=== PATIENT | male | born 1945 | race Caucasian/White ===

== ENCOUNTER → 2018-04-17 13:33 | Outpatient (CLI) | payer MEDICARE, SELFPAY ==
--- NOTE | 2018-04-17 13:36 | RAD_ITS ---
STUDY: X-RAY - RIGHT KNEE REASON FOR EXAM: Pain, no specific injury. TECHNIQUE: 4 view(s) of the knee. COMPARISON: Radiographs 08/19/2013. FINDINGS: Normal visualized distal femur. Normal visualized proximal tibia and fibula. Normal proximal tibiofibular articulation. Normal medial femorotibial compartment. Normal lateral femorotibial compartment. Normal patellofemoral articulation. The soft tissue structures are unremarkable. RAD/Knee 4 or More Views IMPRESSION: Unremarkable x-ray examination of the right knee without interval change. Electronically Signed: Neal Albright MD at 13:07 EDT Tel , Service support ,
--- NOTE | 2018-04-17 14:06 | RAD_ITS ---
STUDY: X-RAY - RIGHT TIBIA AND FIBULA REASON FOR EXAM: Knee pain, history of benign tumor in the proximal tibial/fibular area. TECHNIQUE: 2 view(s) of the tibia and fibula were obtained. COMPARISON: None. FINDINGS: Normal visualized tibia. Normal visualized fibula. There is soft tissue swelling at the lateral aspect of the proximal fibula. RAD/Tibia & Fibula 2 Views IMPRESSION: Lateral soft tissue swelling. Otherwise, unremarkable x-ray examination of the right tibia and fibula. Electronically Signed: Neal Albright MD at 13:08 EDT Tel , Service support ,
== END ==
PROVIDERS: Family Provider Family Medicine; PCP Family Medicine; Visit Provider Orthopaedic Surgery
DX: M25.561 Pain in right knee (principal)
CPT/HCPCS: 73564; 73590

== ENCOUNTER → 2018-04-25 15:25 | Outpatient (CLI) | payer MEDICARE, SELFPAY ==
[2018-04-25 16:48] LABS: Amphetamine Urine VISTA NEGATIVE (<1000 ng/mL); Barbiturate Urine VISTA NEGATIVE (< 200 ng/mL); Benzodiazepine Urine VISTA NEGATIVE (< 200 ng/mL); Cocaine Urine VISTA NEGATIVE (< 300 ng/mL); Ecstacy Urine VISTA NEGATIVE (< 500 ng/mL); Methadone Urine VISTA NEGATIVE (< 300 ng/mL); PCP Urine VISTA NEGATIVE (< 25 ng/mL); THC Urine VISTA NEGATIVE (< 50 ng/mL); Vista UDS pH Range 6
== END ==
PROVIDERS: Family Provider Family Medicine; PCP Family Medicine; Visit Provider Anesthesiology Pain Medicine
DX: F11.20 Opioid dependence, uncomplicated (principal)
CPT/HCPCS: 80307

== ENCOUNTER → 2018-11-19 07:44 | Outpatient (CLI) | payer MEDICARE, SELFPAY ==
[2018-09-13 13:06] VITALS: BMI 31.1
--- NOTE | 2018-11-19 07:50 | NM_ITS ---
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 OCTREOTIDE-SOMATOSTATIN RECEPTOR PLANAR AND SPECT-CT SCINTIGRAPHY COMPARISON: None available. FINDINGS: Following the intravenous administration of 6.1 mCi of In 111 Octreotide, spot planar projections were obtained at 4 hours, whole body projections obtained at 24 and 48 hours and SPECT-CT acquisitions of the chest, abdomen and pelvis obtained at 24 hours post radiopharmaceutical administration reveal: 1. Planar projections demonstrate a focus of increased radiopharmaceutical concentration noted in the region of the subcarinal anterior mediastinum and right lower posterior medial lung field-presumed right lower lobe defined on the 4, 24 and 48 hour projections and confirmed on SPECT-CT reconstructions acquired at 24 hours postinjection. 2. Physiologic distribution of the radiotracer is defined in the hepatic and splenic parenchyma, right and left kidneys, urinary bladder, visualized intestinal tract. Provided SPECT-CT reconstructions are incomplete. IMPRESSION: 1. ABNORMAL In-111 OCTREOTIDE SOMATOSTATIN RECEPTOR SCINTIGRAPHY 2. 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 OCTREOTIDE-SOMATOSTATIN RECEPTOR PLANAR AND SPECT-CT SCINTIGRAPHY COMPARISON: None available. FINDINGS: Following the intravenous administration of 6.1 mCi of In 111 Octreotide, spot planar projections were obtained at 4 hours, whole body projections obtained at 24 and 48 hours and SPECT-CT acquisitions of the chest, abdomen and pelvis obtained at 24 hours post radiopharmaceutical administration reveal: 1. Planar projections demonstrate a focus of increased radiopharmaceutical concentration noted in the region of the subcarinal anterior mediastinum and right lower posterior medial lung field-presumed right lower lobe defined on the 4, 24 and 48 hour projections and confirmed on SPECT-CT reconstructions acquired at 24 hours postinjection. 2. Physiologic distribution of the radiotracer is defined in the hepatic and splenic parenchyma, right and left kidneys, urinary bladder, visualized intestinal tract. Provided SPECT-CT reconstructions are incomplete. NM/Tumor Localization SPECT
== END ==
PROVIDERS: Family Provider Family Medicine; PCP Family Medicine; Referring Provider Internal Medicine Hematology & Oncology; Visit Provider Internal Medicine Hematology & Oncology
DX: D3A.029 Benign carcinoid tumor of the large intestine, unspecified portion (principal)
CPT/HCPCS: 78800; 78802; 78803; A9572

== ENCOUNTER → 2018-11-20 09:53 | Outpatient (CLI) | payer MEDICARE, SELFPAY ==
[2018-09-13 13:06] VITALS: BMI 31.1
== END ==
PROVIDERS: Family Provider Family Medicine; PCP Family Medicine; Referring Provider Surgery; Visit Provider Surgery
DX: Z53.9 Procedure and treatment not carried out, unspecified reason (principal)

== ENCOUNTER → 2018-11-23 12:16 | Outpatient (CLI) | payer MEDICARE, SELFPAY ==
[2018-09-13 13:06] VITALS: BMI 31.1
--- NOTE | 2018-11-23 12:20 | RAD_ITS ---
STUDY: X-RAY - LUMBAR SPINE REASON FOR EXAM: Male, 73 years old. Low back pain TECHNIQUE: 5 view(s) of the lumbar spine were obtained. COMPARISON: None FINDINGS: Normal lumbar lordosis. There is no substantial scoliosis. There is a normal alignment of the vertebrae. There is multilevel endplate spondylosis of the lumbar vertebrae. There is mild narrowing of the L2-3 disc space. There is no demonstrated fracture. There is no demonstrated spondylolysis of the pars interarticulares. There are calcified plaques of the abdominal aorta. RAD/L/S Spine Min 4 Views IMPRESSION: Degenerative changes of the spine, as detailed above. Calcified plaques of the abdominal aorta. Electronically Signed: Carlitos Gallardo MD at 16:54 EDT , Service support ,
== END ==
PROVIDERS: Family Provider Family Medicine; PCP Family Medicine; Referring Provider Anesthesiology Pain Medicine; Visit Provider Anesthesiology Pain Medicine
DX: M47.816 Spondylosis without myelopathy or radiculopathy, lumbar region (principal); M54.5 Low back pain
CPT/HCPCS: 72110

== ENCOUNTER 2019-05-19 12:06 | Emergency (ER) | payer MEDICARE, SELFPAY ==
[2018-09-13 13:06] VITALS: BMI 31.1
[2019-05-19 12:07] VITALS: BP 165/81; PULSE 73; RESP 18; TEMP 36.9; O2SAT 98; BMI 32.4
--- NOTE | 2019-05-19 12:21 | CT_ITS ---
STUDY: CT BRAIN WITHOUT CONTRAST REASON FOR EXAM: Male, 73 years old. Neuro deficit, stroke RADIATION DOSAGE (If Supplied By Facility): CTDIvol = ( 44.99 ) mGy, DLP = ( 812.98 ) mGycm TECHNIQUE: Transaxial CT imaging of the brain was performed without administration of intravenous contrast material. Individualized dose optimization techniques were used for this CT. COMPARISON: No relevant priors. FINDINGS: Normal soft tissue structures. Normal calvarium. There is mild cerebral atrophy with widening of the extra-axial spaces and ventricular dilatation. There are areas of decreased attenuation within the white matter tracts of the supratentorial brain, consistent with microvascular disease changes. Normal basal ganglia and thalami. Normal brainstem. Normal cerebellum. There is no intracranial hemorrhage. There are no findings of an acute ischemic infarction. Normal visualized paranasal sinuses. CT/Brain/Head without Contrast IMPRESSION: 1. No acute intracranial hemorrhage or mass effect. 2. Central parenchymal volume loss. White matter changes that are nonspecific but most commonly associated with chronic small vessel ischemic disease. Electronically Signed: Henok Rivera MD (Brooks) at 13:23 EDT , Service support ,
--- NOTE | 2019-05-19 12:21 | CT_ITS ---
STUDY: CT ABDOMEN AND PELVIS WITHOUT CONTRAST REASON FOR EXAM: Male, 73 years old. Abdominal pain with diarrhea RADIATION DOSAGE (If Supplied By Facility): CTDIvol = ( 23.11 ) mGy, DLP = ( 1339.36 ) mGycm TECHNIQUE: Transaxial images were obtained from the dome of the diaphragm to the symphysis pubis without oral contrast, and without intravenous contrast. Sagittal and coronal images were reconstructed. Individualized dose optimization techniques were used for this CT. COMPARISON: None. FINDINGS: The visualized lung bases are unremarkable. The visualized portions of the heart are within normal limits. There is decreased attenuation of the liver consistent with steatosis. There are surgical clips in the gallbladder fossa consistent with a prior cholecystectomy. Normal spleen. There is diffuse atrophy of the pancreas. Normal bilateral adrenal glands. Normal right kidney. Normal left kidney. Normal visualized stomach. No large or small bowel dilation. No bowel or colon wall thickening. The colon is limited in detail given lack of distention. There is a surgical anastomosis of the right colon with right hemicolectomy. There is diffuse atherosclerotic calcification of the abdominal aorta, without a demonstrated aneurysm. Normal inferior vena cava. Normal retroperitoneum. Normal urinary bladder. There is enlargement of the prostate gland. Normal abdominal wall. There are diffuse degenerative changes of the visualized lumbar spine. CT/Abdomen/Pelvis without Cont IMPRESSION: 1. No bowel obstruction or large/small bowel wall thickening. Nondistended colon limits evaluation. Right hemicolectomy. 2. Hepatic steatosis. 3. Atherosclerosis. Electronically Signed: Henok Rivera MD (Brooks) at 13:27 EDT , Service support ,
--- NOTE | 2019-05-19 12:21 | RAD_ITS ---
STUDY: X-RAY CHEST REASON FOR EXAM: Male, 73 years old. Possible stroke TECHNIQUE: AP COMPARISON: 03/15/2017 FINDINGS: EKG leads project over the chest. The lungs are clear but under expanded. There is no demonstrated pleural abnormality. Normal size heart. Normal mediastinum and hugh. Normal visualized pulmonary arteries. Normal visualized aortic arch and descending thoracic aorta. No acute bony process. There is no demonstrated abnormality of the visualized soft tissue structures of the upper abdomen. RAD/Chest 1 View IMPRESSION: No airspace consolidation or pleural effusion. Hypoinflation. Electronically Signed: Henok Rivera MD (Brooks) at 13:25 EDT , Service support ,
--- NOTE | 2019-05-19 12:21 | EKG12_ITS ---
Test Reason : NEURO SYM Blood Pressure : / mmHG Vent. Rate : 074 BPM Atrial Rate : 074 BPM P-R Int : 204 ms QRS Dur : 084 ms QT Int : 416 ms P-R-T Axes : 031 -07 036 degrees QTc Int : 461 ms Sinus rhythm with occasional Premature ventricular complexes Septal infarct , age undetermined Abnormal ECG Confirmed by NEREYDA SOTO, ALISSA ([id number]), editor dictionary RODRIGUEZ GRIMALDO ([id number]) on 05/24/2019 10:17:13 AM Referred By: SANDY Confirmed By:ALISSA DAWN MD
[2019-05-19 12:39] LABS: Absolute Lymphocyte Count 4.97 X10^3/uL (0.83-4.51); Absolute Neutrophil Count 5.8 X10^3/uL (2.0-7.7); Basophil# 0.07 X10^3/uL; Basophil% 0.6 % (0-1); Eosinophil# 0.07 X10^3/uL; Eosinophils% 0.6 % (0-5); Hematocrit 48.8 % (40-54); Hemoglobin 16.7 g/dL (13.0-16.5); Lymphocyte # 4.97 X10^3/ul (4.0); Lymphocyte % 41.9 % (19-41); Mean Corp Hgb Conc 34.2 g/dL (32-36); Mean Corpuscular Hgb 31.6 pg (27.0-32.0); Mean Corpuscular Volume 92.4 fL (80-94); Mean Platelet Vol. 9.5 fl (6.2-12.0); Monocyte# 0.85 X10^3/uL; Monocyte% 7.2 % (0-10); NRBC Flagged by Analyzer 0 % (0-5); Neutrophil # 5.83 X10^3/uL (2.7-7.7); Neutrophil % 49.2 % (47-70); Platelet Count 288 K/mm3 (150-450); RBC Distribution Width CV 12.8 % (11.6-14.6); RBC Distribution Width SD 43.5 fl (35.1-43.9); Red Blood Count 5.28 M/mm3 (4.6-6.2); White Blood Count 11.9 K/mm3 (4.4-11.0)
[2019-05-19 12:40] VITALS: O2SAT 96
[2019-05-19 12:47] LABS: International Normalized Ratio 1.1; Prothrombin Time (Protime)PT. 13.8 SECONDS (11.7-14.9)
[2019-05-19 12:48] LABS: Partial Thromboplast Time 30.1 Seconds (24.1-36.2)
[2019-05-19 12:50] LABS: AST(SGOT) 91 U/L (15-37); Alanine Aminotransfer ALT/SGPT 74 U/L (16-61); Albumin, Serum 3.6 g/dL (3.2-5.0); Alkaline Phosphatase 119 U/L (45-117); Anion Gap 17 (5-15); BUN 7 mg/dL (7-18); BUN/Creat Ratio 6.8 RATIO (10-20); Calcium,Total 8.7 mg/dL (8.5-10.1); Chloride 98 mmol/L (98-107); Creatinine, Serum 1.03 mg/dL (0.70-1.30); EST Glomerular Filtration Rate 75 mL/min (>60); Est Glom Filt Rate - Afr Amer 91 mL/min (>60); Estimated Creatinine Clearance 60.87 ml/min; Globulin 4.4 g/dL (2.2-4.2); Glucose 194 mg/dL (74-106); Lipase 404 U/L (73-393); Potassium 3.3 mmol/L (3.5-5.1); Sodium Level 135 mmol/L (136-145)
[2019-05-19] MEDS: Ondansetron 4 MG/2 ML Vial IV (13:06)
[2019-05-19 13:29] LABS: Bacteria 0 SEEN /hpf (None Seen); Mucous, Urine 0 SEEN /hpf (<or=2+); Red Blood Cells-Urine 0 SEEN /hpf (0-5); Squamous Epithelial Cells - UA 0 SEEN /hpf (0-5); White Blood Cells 0 SEEN /hpf (0-5)
[2019-05-19 13:30] LABS: Color, Urine Yellow (Yellow); Glucose, Dipstick Normal (Normal); Ketone-Dipstick 5 mg/dl (Negative); Leukocyte Esterase-Dipstick Negative /ul (Negative); Nitrite-Dipstick Negative (Negative); Occult Blood-Urine Negative /ul (Negative); Protein-Dipstick Negative (Negative); Urine Bilirubin Dipstick Negative (Negative); Urine Clarity Clear (Clear); Urine Urobilinogen Normal (Normal)
--- NOTE | 2019-05-19 13:51 | ED.DCSUM_ITS ---
- ER Visit Summary Date of Service: 05/19/19 Chief Complaint: Multiple issues History of Present Illness: The patient is a 73 M who presents with his . She was worried he had a stroke. Yesterday at 5 AM, over 24 hours ago, he had left eye droopiness, right leg weakness, and slurred speech. He fell secondary to the right leg weakness. He only has a right leg as his left leg was amputated remotely. Denies any current vision changes, speech changes, focal weakness, or focal numbness. He denies any injuries from the fall. He says that he has had long-standing diarrhea secondary to hemicolectomy by Dr. Delgado remotely. He has been taking Pepto, and his stools have been black. He denies any bleeding. His was concerned for bleeding, but he continues to deny it. He is not on blood thinners. He reports occasional diffuse abdominal pain. Denies fevers or urinary symptoms. Denies respiratory symptoms. Denies recent illnesses. Physical Examination: Afebrile and vital signs unremarkable. Patient alert and oriented. He affect is slightly labile, see below. Head and neck atraumatic. Cranial nerves grossly intact. HEENT exam unremarkable. Heart regular. Lungs clear. Abdomen soft and nontender. Patient refused rectal exam. Extremities show left lower extremity amputation. Patient otherwise has good strength and sensation and his NIH stroke scale is 0. Test Results: EKG showed sinus rhythm at a rate of 74. White count 11.9, hemoglobin 16.7. Sodium 135, potassium 3.3, CO2 20, anion gap 17, glucose 194, alkaline phosphatase 119, ALT 74, AST 91. Lipase and coags unremarkable. Urinalysis and troponin unremarkable. Chest x-ray showed chronic changes. CT brain showed chronic changes. CT abdomen and pelvis showed postoperative and chronic changes. Emergency Department Course and Treatment: Patient has multiple symptoms including neurologic and GI symptoms. A broad work-up was pursued. Overall, his work-up was fairly unremarkable. Patient refused a rectal exam to check for Hemoccult positive stool. He mentioned multiple times how upset he was that we were suggesting he should have a rectal exam. He seemed to perseverate on this and at times gets slightly agitated. He was always redirectable although, and otherwise pleasant. I am not sure what is causing the patient's symptoms. It sounds like, from his , that the symptoms are all fairly acute over the last couple days. He is not doing well at home. She cannot care for him. He is not safe at home. We contacted the hospitalist for further care. Treatment Plan: As above Disposition: Dr. Parish evaluated the patient, and the patient wants to go home. He is alert and oriented and will be discharged AGAINST MEDICAL ADVICE. Impression: 1. Encephalopathy This note was generated with [employer] dictation software. It may contain incorrect words, spelling, and punctuation that were not noted in review of the chart prior to signing ED Disposition - Plan for ED Patient:
--- NOTE | 2019-05-19 14:22 | PCM.CONS.GEN ---
Problem List (1) Debility Status: Acute Reason for Consult Date of Consultation: 05/19/19 Reason for Consultation: Consult requested by Dr. pabon for debility and inpatient admission. History of Present Illness: The patient is a 73 year old M presents with chronic history of diarrhea but worse over the past several days and just increasing weakness over the past couple days. Patient has had some falls. Patient's brought him into the hospital for evaluation stating that she be unable to care for him. Patient underwent a battery of test, head CT, abdominal CT that showed no acute process. Lab work was fairly unremarkable though did show potassium 3.3. Patient has been having diarrhea and the patient and his dispute the consisting of his diarrhea. His that is watery and red, the patient refutes that saying that it is black from his Pepto-Bismol. So they spoke with emerged from and he advised to admission to be further evaluated for possible placement. Went and saw the patient and reiterated the same he was quite alarmed by that and absolutely refused to be admitted even if it were just to get IV fluids and just be evaluated by therapy. He scalp at the very nature of physical therapy saying that he does not need the exercises. 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) G54.6 Chronic back pain (Chronic) M54.9, G89.29 Polyp of cecum (Acute) 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 Hemorrhoids K64.9 Allergies clonidine Allergy (Verified 05/19/19 12:10) Other BRADYCARDIA/ 'NARCOTIC LIKE MIND terazosin HCl [From Hytrin] Allergy (Verified 05/19/19 12:10) Other INCREASED HR tetracycline Allergy (Verified 05/19/19 12:10) Unknown STATES NOT ABLE TO TAKE valsartan [From Diovan] Allergy (Verified 05/19/19 12:10) Unknown amlodipine besylate [From Norvasc] Adverse Reaction (Verified 05/19/19 12:10) Other dexamethasone [From Maxidex] Adverse Reaction (Verified 05/19/19 12:10) Other doxycycline Adverse Reaction (Verified 05/19/19 12:10) Upset Stomach enalapril maleate [From Vasotec] Adverse Reaction (Verified 05/19/19 12:10) Other enalaprilat dihydrate [From Vasotec] Adverse Reaction (Verified 05/19/19 12:10) Other ezetimibe [From Zetia] Adverse Reaction (Verified 05/19/19 12:10) Other hydrochlorothiazide Adverse Reaction (Verified 05/19/19 12:10) Other WEAKNESS lansoprazole [From Prevacid] Adverse Reaction (Verified 05/19/19 12:10) Other PAIN IN STOMCAH losartan potassium [From Cozaar] Adverse Reaction (Verified 05/19/19 12:10) Other metformin Adverse Reaction (Verified 05/19/19 12:10) Other PAIN IN ABDOMEN pioglitazone HCl [From Actos] Adverse Reaction (Verified 05/19/19 12:10) Other MESSED WITH MY HEART propranolol HCl [From Inderal LA] Adverse Reaction (Verified 05/19/19 12:10) Other rosuvastatin calcium [From Crestor] Adverse Reaction (Verified 05/19/19 12:10) Other sucralfate [From Carafate] Adverse Reaction (Verified 05/19/19 12:10) Other HEARTBURN Home Medications: Ambulatory Orders Medication Instructions Recorded Acetaminophen [Tylenol] 1,000 mg PO PRN PRN 11/04/15 Fish Oil/Dha/Epa [Fish Oil 1,200 4 cap PO DAILY 11/04/15 mg Fish Oil] Fluticasone 0.05% [Flonase Nasal 2 spray NASAL DAILY PRN 11/04/15 [place]] Tamsulosin HCl [Flomax] 0.4 mg PO DAILY 11/04/15 Clorazepate [Tranxene] 7.5 mg PO DAILY PRN 03/07/17 Insulin Glargine,Hum.rec.anlog 60 unit SQ DAILY 03/07/17 [Lantus] Loperamide [Imodium] 2 mg PO PRN PRN 03/07/17 Olmesartan Medoxomil [Benicar] 40 mg PO DAILY 03/07/17 Insulin Aspart [Novolog Flexpen 5 units SUBCUT TIDCM PRN 04/28/17 ([facility])] Surgical History: Surgical History (Last Reviewed 05/19/19 @ 14:24 by Akbar Parish DO) 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 Leg amputation in 1967. Smoking Status: Former smoker Alcohol: Heavy - Drinks a quarter of a handle size bottle of low proof vodka - *Family History Maternal History Items: Diabetes Paternal History Items: Hypertension Review of Systems Constitutional: Reports: Weakness. Denies: Anorexia, Chills, Fever, Night Sweats Eyes: Denies: Blurred vision, Double vision HEENT: Reports: Difficulty Hearing. Denies: Dysphasia, Ear Pain Cardiovascular: Denies: Chest Pain, Palpitations Respiratory: Reports: Cough - chronic for past several months.. Denies: Shortness of Breath Gastrointestinal: Denies: Abdominal Pain, Nausea, Vomiting Genitourinary: Denies: Dysuria Musculoskeletal: Reports: - - phantom pain. Denies: Joint Pain, Joint Tenderness Neurological: Reports: Balance problems. Denies: Blurred vision, Double vision Psychiatric: Denies: Anxiety, Depression Hematologic/ Lymphatic: Denies: Easy Bruising, Easy Bleeding, Hx of blood clot Comment: All review systems are negative except for as mentioned above. Patient Problems: Active and Suspected Problems (Last Reviewed 09/16/18 @ 17:52 by David Delgado MD) Debility (Acute) - Physical Exam General: Alert, Oriented x3, Cooperative, - - Hard of hearing. Vulgar at sometimes. HEENT: Atraumatic, PERRLA, EOMI, Normocephalic Oral: Moist Mucosa, No Gingival or Mucosal Lesions/ Ulcerations Neck: No Nodes, Thyroid Normal Size and Texture Lungs: Clear to auscultation, Normal air movement, No rhonchi, No wheeze, No rales, Diminished Cardiovascular: Regular rate, Regular Rhythm, Normal S1, Normal S2, No murmurs Abdomen: Bowel Sounds Present, Soft, Non-Distended, Tender Extremities: No edema - And right lower extremity Skin: No rashes, No breakdown Musculoskeletal: No Tenderness to Palpation of Joints or Extremities, No Muscle Wasting Psych/Mental Status: Appropriate, Agitated Vital Signs Temp Pulse Resp BP Pulse Ox 36.9 C 73 18 165/81 H 96 05/19/19 12:07 05/19/19 12:07 05/19/19 12:07 05/19/19 12:07 05/19/19 12:40 Oxygen Delivery Method Room Air Weight: 96.8 kg Body Mass Index (BMI) 32.4 Finger Stick Blood Glucose 251 Intake and Output for Last 24 Hours 05/17/19 05/18/19 05/19/19 23:59 23:59 23:59 Intake Total 500 / 500 Balance 500 / 500 Laboratory Tests Past 24 Hrs 05/19/19 05/19/19 05/19/19 12:15 12:15 12:15 WBC 11.9 H RBC 5.28 Hgb 16.7 H Hct 48.8 MCV 92.4 MCH 31.6 MCHC 34.2 RDW Std Deviation 43.5 RDW Coeff of Jenise 12.8 Plt Count 288 MPV 9.5 Immature Gran % (Auto) 0.500 Neut % (Auto) 49.2 Lymph % (Auto) 41.9 H [place] % (Auto) 7.2 Eos % (Auto) 0.6 Baso % (Auto) 0.6 Absolute Neuts (auto) 5.8 Absolute Lymphs (auto) 4.97 H Nucleated RBC % 0 PT 13.8 INR 1.1 APTT 30.1 Sodium 135 L Potassium 3.3 L Chloride 98 Carbon Dioxide 20.0 L Anion Gap 17 H BUN 7 Creatinine 1.03 Estim Creat Clear Calc 60.87 Est GFR (MDRD) Af Amer 91 Est GFR (MDRD) Non-Af 75 BUN/Creatinine Ratio 6.8 L Glucose 194 H Calcium 8.7 Total Bilirubin 0.60 Direct Bilirubin 0.20 AST 91 H ALT 74 H Alkaline Phosphatase 119 H Troponin I < 0.015 Total Protein 8.0 Albumin 3.6 Globulin 4.4 H Lipase 404 H Urine Color Urine Clarity Urine pH Ur Specific [place] Urine Protein Urine Glucose (UA) Urine Ketones Urine Occult Blood Urine Nitrite Urine Bilirubin Urine Urobilinogen Ur Leukocyte Esterase Urine RBC Urine WBC Ur Squamous Epith Cells Urine Bacteria Urine Mucus 05/19/19 13:20 WBC RBC Hgb Hct MCV MCH MCHC RDW Std Deviation RDW Coeff of Jenise Plt Count MPV Immature Gran % (Auto) Neut % (Auto) Lymph % (Auto) [place] % (Auto) Eos % (Auto) Baso % (Auto) Absolute Neuts (auto) Absolute Lymphs (auto) Nucleated RBC % PT INR APTT Sodium Potassium Chloride Carbon Dioxide Anion Gap BUN Creatinine Estim Creat Clear Calc Est GFR (MDRD) Af Amer Est GFR (MDRD) Non-Af BUN/Creatinine Ratio Glucose Calcium Total Bilirubin Direct Bilirubin AST ALT Alkaline Phosphatase Troponin I Total Protein Albumin Globulin Lipase Urine Color Yellow Urine Clarity Clear Urine pH 6.0 Ur Specific [place] 1.010 Urine Protein Negative Urine Glucose (UA) Normal Urine Ketones 5 H Urine Occult Blood Negative Urine Nitrite Negative Urine Bilirubin Negative Urine Urobilinogen Normal Ur Leukocyte Esterase Negative Urine RBC 0 SEEN Urine WBC 0 SEEN Ur Squamous Epith Cells 0 SEEN Urine Bacteria 0 SEEN Urine Mucus 0 SEEN Clinical Impression(s) from Imaging Studies Abdomen/Pelvis CT 05/19/19 12:21 IMPRESSION: 1. No bowel obstruction or large/small bowel wall thickening. Nondistended colon limits evaluation. Right hemicolectomy. 2. Hepatic steatosis. 3. Atherosclerosis. Electronically Signed: Henok Rivera MD (Brooks) at 13:27 EDT , Service support , Brain CT 05/19/19 12:21 IMPRESSION: 1. No acute intracranial hemorrhage or mass effect. 2. Central parenchymal volume loss. White matter changes that are nonspecific but most commonly associated with chronic small vessel ischemic disease. Electronically Signed: Henok Rivera MD (Brooks) at 13:23 EDT , Service support , Chest X-Ray 05/19/19 12:21 IMPRESSION: No airspace consolidation or pleural effusion. Hypoinflation. Electronically Signed: Henok Rivera MD (Brooks) at 13:25 EDT , Service support , Assessment/Plan All Active Problems (Last Reviewed 09/16/18 @ 17:52 by David Delgado MD) Debility (Acute) Acute cholecystitis (Acute) Ampulla of Vater mass (Acute) Polyp of cecum (Acute) Status post right hemicolectomy (Acute) 1. Debility Patient was noted to be weak today and is only has one leg. Patient has [id number] amputation on his left lower extremity and does not use his prosthesis because it does not fit properly at this time. I suspect patient may be dehydrated and possible have associated illness and advised patient be brought in to receive additional IV fluids and reevaluate physical and occupational therapy to see if he may need to go to a long-term facility as the patient's states that she would be unable to care for him. The patient adamantly refuses to have any of that and strongly wishes to go home. Patient understands risks of going home which would be him just being very weak and potential for fall which could lead to a hip fracture or other fractures or some catastrophic such as if he were hit his head. Patient understands that but has a lot of confidence that he will be fine. This was all addressed in front of his . 2. Diarrhea has been more of a chronic process which may be related with his history of a cholecystectomy May consider Imodium. No acute process on CT the abdomen pelvis 3. Belligerent behavior Unknown with this patient's baseline but apparently different when he is currently. Otherwise states that he is just having more outbursts lately. Patient did have some vulgarities why he was here but and said some vulgarities towards me but was otherwise pleasant and we shook hands. I am unsure if there is anything acutely going on here but certainly if this condition persists then may warrant additional evaluation. Currently, he is alert and oriented x3 though he did miss the day of the month. His not a threat to himself or others other than just making bad decisions in regards to his own care. No acute process noted on the head CT Case discussed with Dr. Cline. Explained that if the patient does change his mind then the hospital service would be happy to bring the patient under observation status and be evaluated by physical therapy. Code Visit Office Visits / Consults: [id number] OP Consult L4
[2019-05-19 14:40] VITALS: BP 146/58; PULSE 76; RESP 16; O2SAT 98
== END 2019-05-19 15:16 | disposition home or self-care (01) ==
LOC: ED 13:55 → MS3 14:23
PROVIDERS: Emergency Provider Emergency Medicine; Family Provider Family Medicine; PCP Family Medicine
DX: G93.40 Encephalopathy, unspecified (principal); R53.81 Other malaise; R19.7 Diarrhea, unspecified; K81.0 Acute cholecystitis; K63.5 Polyp of colon; E11.9 Type 2 diabetes mellitus without complications; I10 Essential (primary) hypertension; H91.90 Unspecified hearing loss, unspecified ear; R53.1 Weakness; R47.81 Slurred speech; R10.84 Generalized abdominal pain; R45.1 Restlessness and agitation; Z79.4 Long term (current) use of insulin; Z79.899 Other long term (current) drug therapy; Z88.5 Allergy status to narcotic agent; Z88.1 Allergy status to other antibiotic agents; Z87.891 Personal history of nicotine dependence; Z89.512 Acquired absence of left leg below knee; Z90.49 Acquired absence of other specified parts of digestive tract
CPT/HCPCS: 70450; 71045; 74176; 80048; 80076; 81001; 83690; 84484; 85025; 85610; 85730; 93005; 96361; 96374; 99285; J7120; A4216; J2405

== ENCOUNTER 2019-05-28 11:57 | Emergency (ER) | payer MEDICARE, SELFPAY ==
[2019-05-28 11:58] VITALS: BP 156/69; PULSE 83; RESP 18; TEMP 36.7; O2SAT 96; BMI 29.7
--- NOTE | 2019-05-28 12:51 | ED.VISSUMM ---
- ER Visit Summary Date of Service: 05/28/19 Chief Complaint: Diarrhea for 1 week History of Present Illness: The patient is a 73 M 3 of diabetes, hypertension and prior carcinoma in which she had a partial colectomy also appendectomy and cholecystectomy. Patient was seen in the emergency department approximately a week ago. He left at that time AMA. He was worked up for mental status change. He states since that time he had diarrhea. Denies any recent admissions. No recent antibiotics he has had nausea but no vomiting. No melena. Denies any fever or chills. Physical Examination: Older male no acute distress vital signs are stable afebrile. He does not look septic or toxic. He does not look dehydrated. HEENT exam unremarkable. Moist his membranes. Neck nontender. No lymphadenopathy. Lungs clear to auscultation bilaterally. Heart regular rhythm no murmur abdomen is soft and nontender normal bowel sounds no peritoneal signs. Patient is moving all 4 extremities neurovascular intact. He is a left [id number] amputation from 50 years ago. Neurologically is awake and alert with no focal motor deficits. Test Results: CBC normal white count 10. Hemoglobin 16. No bands. Chemistries normal glucose 158 normal creatinine and gap. I ordered stool cultures patient has not had a bowel movement the entire time is in the ER clinically I do not think this is C. difficile these can be done as an outpatient. Emergency Department Course and Treatment: Clinically patient looks good. He is not dehydrated. Screening labs and a stool culture was ordered but he had no BMs so will be done as an outpatient. Treatment Plan: Follow-up with primary care physician. Disposition: discharge Impression: Acute diarrhea of uncertain etiology This note was generated with [employer] dictation software. It may contain incorrect words, spelling, and punctuation that were not noted in review of the chart prior to signing ED Disposition - Plan for ED Patient: Referrals: Simon Munson MD [Primary Care Provider] -
[2019-05-28 13:02] LABS: Absolute Lymphocyte Count 3.54 X10^3/uL (0.83-4.51); Absolute Neutrophil Count 5.7 X10^3/uL (2.0-7.7); Basophil# 0.06 X10^3/uL; Basophil% 0.6 % (0-1); Eosinophil# 0.09 X10^3/uL; Eosinophils% 0.9 % (0-5); Hematocrit 50.9 % (40-54); Hemoglobin 16.8 g/dL (13.0-16.5); Lymphocyte # 3.54 X10^3/ul (4.0); Lymphocyte % 33.7 % (19-41); Mean Corpuscular Hgb 31.3 pg (27.0-32.0); Mean Platelet Vol. 10.3 fl (6.2-12.0); Monocyte# 1.07 X10^3/uL; Monocyte% 10.2 % (0-10); NRBC Flagged by Analyzer 0 % (0-5); Neutrophil % 54.1 % (47-70); Platelet Count 293 K/mm3 (150-450); RBC Distribution Width CV 13.1 % (11.6-14.6); Red Blood Count 5.36 M/mm3 (4.6-6.2); White Blood Count 10.5 K/mm3 (4.4-11.0)
[2019-05-28 13:12] LABS: Anion Gap 13 (5-15); BUN 7 mg/dL (7-18); BUN/Creat Ratio 6.9 RATIO (10-20); Calcium,Total 9.1 mg/dL (8.5-10.1); Chloride 102 mmol/L (98-107); Creatinine, Serum 1.01 mg/dL (0.70-1.30); EST Glomerular Filtration Rate 77 mL/min (>60); Est Glom Filt Rate - Afr Amer 93 mL/min (>60); Estimated Creatinine Clearance 64.17 ml/min; Glucose 158 mg/dL (74-106); Potassium 3.8 mmol/L (3.5-5.1); Sodium Level 136 mmol/L (136-145)
[2019-05-28 13:57] VITALS: RESP 16
--- NOTE | 2019-05-28 14:35 | ED.RN ---
PT UNABLE TO PRODUCE STOOL SAMPLE
[2019-05-28 15:00] VITALS: RESP 16
--- NOTE | 2019-05-28 15:12 | DCINST.ED_ITS ---
ED Disposition - Plan for ED Patient: Instructions: VOMITING AND DIARRHEA, Nonspecific (Adult) Referrals: Simon Munson MD [Primary Care Provider] - As soon as possible Additional Instructions: Plenty of fluids and rest. Your physician. You may need stool cultures done if this continues. If they cannot get it figured out they may need to refer you to a web site manager.
[2019-05-28 16:02] VITALS: BP 134/65; PULSE 72; RESP 16; O2SAT 96
--- NOTE | 2019-05-28 16:04 | ED.RN ---
REVIEWED D/C INSTRUCTIONS, FOLLOW UP CARE, AND S/S THAT WOULD WARRANT A RETURN TO THE ED WITH PT. PT VERBALIZED AN UNDERSTANDING AND DENIES FURTHER QUESTIONS FOR THIS RN. PT SKIN P/W/D, RESP EVEN AND UNLABORED, PT A&O X 3, NO DISTRESS NOTED. PT ASSISTED OUT OF ED IN WHEELCHAIR.
== END 2019-05-28 16:05 | disposition home or self-care (01) ==
LOC: ED 12:30
PROVIDERS: Emergency Provider Emergency Medicine; Family Provider Family Medicine; PCP Family Medicine
DX: R19.7 Diarrhea, unspecified (principal); I10 Essential (primary) hypertension; E11.9 Type 2 diabetes mellitus without complications; Z90.49 Acquired absence of other specified parts of digestive tract; Z89.612 Acquired absence of left leg above knee; Z79.4 Long term (current) use of insulin; Z79.899 Other long term (current) drug therapy
CPT/HCPCS: 80048; 85025; 99285; A4216

== ENCOUNTER 2020-05-07 09:11 | Day surgery (SDC) | payer MEDICARE, SELFPAY ==
[2020-04-30 14:03] VITALS: BMI 29.7
[2020-05-07 09:33] VITALS: BP 151/64; PULSE 66; RESP 14; TEMP 36.6; O2SAT 93; BMI 31.4
[2020-05-07] MEDS: Lactated Ringers 1,000 ML 100 ML IV (10:14)
[2020-05-07 10:30] LABS: Bedside Glucose 202 mg/dL (70-110)
--- NOTE | 2020-05-07 10:50 | RAD_ITS ---
ERCP INDICATION: Abdominal pain. Fluoroscopy time: 87 seconds Images obtained: 7 TECHNIQUE: 87 seconds of fluoroscopy of the abdomen was utilized during ERCP and 7 images are symmetric for interpretation. Next FINDINGS: There is an oval filling defect within the common bile duct worrisome for common bile duct stone. This was treated with balloon sphincterotomy and stent placement. Next IMPRESSION: Common bile duct stone. Electronically Signed: Asher Hoskins MD at 12:05 EDT Tel , Service support , RAD/ERCP Biliary Only
--- NOTE | 2020-05-07 11:35 | OP.ERCP_ITS ---
Patient Name: Suhas Sterling Procedure Date: 05/07/2020 9:13 AM Date of : 1945 Age: 74 Procedure: ERCP Indications: Biliary dilation on Computed Tomogram Scan Providers: Panda Manzano MD Referring MD: Simon Munson Medicines: General Anesthesia Patient Profile: This is a 74 year old male. Refer to note in patient chart for documentation of history and physical. Complications: No immediate complications. Estimated blood loss: Minimal. Procedure: Pre-Anesthesia Assessment: - Prior to the procedure, a History and Physical was performed, and patient medications and allergies were reviewed. The patient's tolerance of previous anesthesia was also reviewed. The risks and benefits of the procedure and the sedation options and risks were discussed with the patient. All questions were answered, and informed consent was obtained. Prior Anticoagulants: The patient has taken no previous anticoagulant or antiplatelet agents. After reviewing the risks and benefits, the patient was deemed in satisfactory condition to undergo the procedure. After obtaining informed consent, the scope was passed under direct vision. Throughout the procedure, the patient's blood pressure, pulse, and oxygen saturations were monitored continuously. The [id number] endoscope was introduced through the mouth, and advanced to the duodenum and used to inject contrast into the bile duct. The ERCP was accomplished without difficulty. The patient tolerated the procedure well. Scope In: 10:55:37 AM Scope Out: 11:22:59 AM Total Procedure Duration Time 0 hours 27 minutes 22 seconds Findings: A 0.035 inch x 260 cm straight Dreamwire was passed into the biliary tree. The sphincterotome was passed over the guidewire and the bile duct was then deeply cannulated. Contrast was injected. The common bile duct was diffusely dilated, with a stone causing an obstruction. The lower third of the main bile duct contained one stone, which was large in diameter. Biliary sphincterotomy was made with a monofilament sphincterotome using ERBE electrocautery. There was no post-sphincterotomy bleeding. The biliary tree was swept with a 15 mm balloon starting at the bifurcation. Sludge was swept from the duct. No stones were removed. One stone remained. One 10 Fr by 5 cm plastic stent with a single external flap and a single internal flap was placed into the common bile duct. Bile flowed through the stent. The stent was in good position. Impression: - The common bile duct was dilated, with a stone causing an obstruction. - Choledocholithiasis was found. Partial removal was accomplished with biliary sphincterotomy; a stent was inserted. - A biliary sphincterotomy was performed. - The biliary tree was swept. - One plastic stent was placed into the common bile duct. Recommendation: - Discharge patient to home. - Resume previous diet. - Return to endoscopist for stent removal at ERCP in 1 month. Procedure Code(s): --- Professional --- 03304, Endoscopic retrograde cholangiopancreatography (ERCP); with placement of endoscopic stent into biliary or pancreatic duct, including pre- and post-dilation and guide wire passage, when performed, including sphincterotomy, when performed, each stent [id number], 51, Endoscopic retrograde cholangiopancreatography (ERCP); with removal of calculi/debris from biliary/pancreatic duct(s) Diagnosis Code(s): --- Professional --- K80.51, Calculus of bile duct without cholangitis or cholecystitis with obstruction K83.8, Other specified diseases of biliary tract CPT copyright 2017 [employer]. All rights reserved. The codes documented in this report are preliminary and upon reporting developer review may be revised to meet current compliance requirements. Panda Manzano MD 05/07/2020 11:35:20 AM This report has been signed electronically. Number of Addenda: 0 Note Initiated On: 05/07/2020 9:13 AM
--- NOTE | 2020-05-07 11:35 | OP.CCLET_ITS ---
05/07/2020 Simon Munson Re : ERCP procedure for Suhas Frazier Jeimy This procedure was performed on April. My impressions and recommendations are as follows: Impressions : - The common bile duct was dilated, with a stone causing an obstruction. - Choledocholithiasis was found. Partial removal was accomplished with biliary sphincterotomy; a stent was inserted. - A biliary sphincterotomy was performed. - The biliary tree was swept. - One plastic stent was placed into the common bile duct. Recommendations : - Discharge patient to home. - Resume previous diet. - Return to endoscopist for stent removal at ERCP in 1 month. My findings are described in the full procedure note, which is enclosed. If I can be of further assistance, please feel free to contact me at Doctor phone number(s): , Work: . Sincerely, Panda Manzano MD 05/07/2020 11:35:20 AM This report has been signed electronically.
[2020-05-07 11:36] VITALS: BP 127/70; BP 151/64; PULSE 69; RESP 18; TEMP 36.4; O2SAT 95
[2020-05-07 11:45] VITALS: BP 114/63; BP 151/64; PULSE 74; RESP 16; O2SAT 96
[2020-05-07 11:55] LABS: Bedside Glucose 201 mg/dL (70-110)
[2020-05-07 11:59] VITALS: BP 119/63; BP 151/64; PULSE 60; RESP 18; TEMP 36.6; O2SAT 96
[2020-05-07 12:38] VITALS: BP 151/64
--- NOTE | 2020-05-08 08:24 | HP_ITS ---
Intake Vital Signs 04/30/20 BMI 29.7 04/30/20 Height 5 ft 9 in 04/30/20 Weight: 198 lb 04/30/20 BMI 29.2 04/30/20 BP 119/69 04/30/20 Blood Pressure Location Rt brachial 04/30/20 Position Sitting 04/30/20 Respiration 18 04/30/20 Pulse 68 04/30/20 Pulse Source Monitor 04/30/20 Temp 98.1 F 04/30/20 Temp Source Temporal 04/30/20 Pulse Oximetry (%) 96 04/30/20 Oxygen Delivery Method room air Intake Visit Reasons: Jaundice/ERCP Chief Complaint: Discuss ERCP Bulk Station Agent Required: No Accompanied by: Is patient in pain?: No Allergies clonidine Allergy (Verified 04/30/20 13:56) Other terazosin HCl [From Hytrin] Allergy (Verified 04/30/20 13:56) Other tetracycline Allergy (Verified 04/30/20 13:56) Unknown valsartan [From Diovan] Allergy (Verified 04/30/20 13:56) Unknown amlodipine besylate [From Norvasc] Adverse Reaction (Verified 04/30/20 13:56) Other dexamethasone [From Maxidex] Adverse Reaction (Verified 04/30/20 13:56) Other doxycycline Adverse Reaction (Verified 04/30/20 13:56) Upset Stomach enalapril maleate [From Vasotec] Adverse Reaction (Verified 04/30/20 13:56) Other enalaprilat dihydrate [From Vasotec] Adverse Reaction (Verified 04/30/20 13:56) Other ezetimibe [From Zetia] Adverse Reaction (Verified 04/30/20 13:56) Other hydrochlorothiazide Adverse Reaction (Verified 04/30/20 13:56) Other lansoprazole [From Prevacid] Adverse Reaction (Verified 04/30/20 13:56) Other losartan potassium [From Cozaar] Adverse Reaction (Verified 04/30/20 13:56) Other metformin Adverse Reaction (Verified 04/30/20 13:56) Other pioglitazone HCl [From Actos] Adverse Reaction (Verified 04/30/20 13:56) Other propranolol HCl [From Inderal LA] Adverse Reaction (Verified 04/30/20 13:56) Other rosuvastatin calcium [From Crestor] Adverse Reaction (Verified 04/30/20 13:56) Other sucralfate [From Carafate] Adverse Reaction (Verified 04/30/20 13:56) Other Medications Acetaminophen [Tylenol] 1,000 mg PO PRN PRN 11/04/15 [History Confirmed 04/30/20] Fish Oil/Dha/Epa [Fish Oil 1,200 mg Fish Oil] 4 cap PO DAILY 11/04/15 [History Confirmed 04/30/20] Fluticasone 0.05% [Flonase Nasal [place]] 2 spray NASAL DAILY PRN 11/04/15 [History Confirmed 04/30/20] Tamsulosin HCl [Flomax] 0.4 mg PO DAILY 11/04/15 [History Confirmed 04/30/20] Loperamide [Imodium] 2 mg PO PRN PRN 03/07/17 [History Confirmed 04/30/20] cholecalciferol (vitamin D3) 25 mcg (1,000 unit) capsule 25 mcg PO DAILY 04/30/20 [History Confirmed 04/30/20] dicyclomine 20 mg tablet 20 mg PO .QID tab 04/30/20 [History Confirmed 04/30/20] insulin aspart U-100 100 unit/mL (3 mL) subcutaneous pen 80 unit SUBCUT QAM ml 04/30/20 [History Confirmed 04/30/20] irbesartan 300 mg tablet 300 mg PO DAILY 04/30/20 [History Confirmed 04/30/20] nifedipine 60 mg tablet,extended release 60 mg PO BID tab 04/30/20 [History Confirmed 04/30/20] [facility] Medical History Acute cholecystitis (Acute) Debility (Acute) Ampulla of Vater mass (Acute) Hypertension (Chronic) Type II diabetes mellitus (Chronic) 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 Panda Manzano MD) Smoking Status: Former smoker alcohol intake: never substance use type: does not use HPI HPI HPI: DAO BENNETT, is a 74 M who presents to the office today for HPI HPI Surgical H&P: Yes HPI: DAO BENNETT, is a 74 M who presents to the office today for ERCP. The patient recently had CT scan which showed dilated intrahepatic and extrahepatic bile ducts. The patient notes that recently he has been having episodes of not feeling well. He says he feels very fatigued. No nausea or vomiting or specific abdominal pain. ROS General General: Yes fatigue and colon cancer; no weight change, appetite, breast cancer or weakness HEENT HEENT: No difficulty swallowing, eye injury, eye surgery, swollen glands or hoarseness Endo Endocrine: Yes diabetes mellitus; no thyroid disease, thyroid cancer, Hair loss, heat intolerance or cold intolerance Skin Skin: No rash or changing moles Breast Breast: No left breast lump, right breast lump, nipple discharge, breast pain, abnormal mammogram, abnormal US or breast enlargement Musc Musculoskeletal: Yes back problems and arthritis; no rheumatoid arthritis, gout or joint pain Cardio Cardiovascular: Yes high blood pressure; no murmur, pacemaker, heart disease, atrial fibrillation, heart attack, heart stent, palpitations, shortness of breat with exertion or chest pain Psych Psychiatric: No depression, anxiety or hearing voices Resp Respiratory: No shortness of breath, No sleep apnea, Yes cough, No COPD, No asthma, No emphysema, No wheezing Gastro Gastrointestinal: No abdominal pain, No nausea or vomiting, Yes diarrhea, No constipation, No blood in stool, No acid reflux, Yes hemorrhoids, No ulcers, No gallbladder problem, No black,tarry stools Kel Hematologic: No blood thinners, No blood disorders, No bleeding, No anemia, No blood clots Neuro Neurologic: No system reviewed and no additional complaints, except as docu, No as per HPI, No abnormal walking, No abnormal hearing, No abnormal movements, No abnormal speech, No behavioral changes, No burning sensations, No confusion, No seizure-like activity, No unsteadiness, No dizziness, No localized weakness, No frequent falls, No headache(s), No lack of coordination, No loss of vision, No memory loss, No numbness, No other visual disturbances, No radiating pain, No restless legs, No sensory deficit, No fainting, No tingling, No tremor(s), No weakness, No other Exam Const General: cooperative Orientation: alert, oriented x3 Chest Breast Palpation: No nipple discharge Resp Effort & Inspection: normal respiratory effort Auscultation: clear to auscultation bilaterally Cardio Rate: regular rate Rhythm: regular rhythm Heart Sounds: no murmurs GI Inspection: non-distended Palpation: soft, nontender Assessment & Plan Problems 1. Elevated LFTs R79.89 2. Dilated bile duct K83.8 Plan The patient had a history of ERCP in the past and had a possible ampullary mass which was biopsied and was benign. The patient had a recent PET scan which did not show anything lighting up in that area. He did have a recent CT scan which showed dilated intrahepatic and extrahepatic bile ducts with a possible filling defect in the distal bile duct. Oncology sent the patient for evaluation for ERCP. I explained endoscopy in detail to the patient. I explained the risks including but not limited to stroke or heart attack with anesthesia, perforation of the GI tract, bleeding, infection. I also explained the possibility of stent placement or pancreatitis due to ERCP. I explained that any of these could necessitate further emergency surgery. The patient understands and all questions were answered sufficiently. The patient wishes to proceed with procedure. We discussed the current risks associated with COVID-19. While it is understood that there is a community spread of COVID-19, the risk of roya COVID-19 while at [facility] ([facility]) is very low; however, the risk cannot be completely mitigated because of the community spread of the disease. We discussed in detail the risk of exposure to and/or potential harm posed by the COVID-19 virus with having a surgery/procedure at this time versus the risk of delaying the surgery/procedure. It is not possible to know either the risk of delaying the surgery or procedure or chance of getting an infection with perfect accuracy, but a joint decision was made to proceed at this time with the scheduled surgery/procedure as indicated on the consent form. Patient was notified that we will need to comply with any screening or testing [facility] wishes to perform or that surgery may be delayed for any positive results. Panda Manzano MD Pager: [facility] [address] [place] [address], [address] [place] [address] Office: Orders Orders: ERCP Biliary Only Today K83.8, R74.8 Coding Level of Care Code Off vis,est,level 3 Diagnoses Elevated LFTs R79.89 Dilated bile duct K83.8 I have re-examined the patient. There are no clinical changes since date of exam.
== END 2020-05-07 12:40 | disposition home or self-care (01) ==
LOC: EN 09:13 → AC 09:13
PROVIDERS: Anesthesiology; PCP Family Medicine; Referring Provider Family Medicine; Visit Provider Surgery
PROC: (CPT 43260; principal; 2020-05-07 10:15)
DX: K80.50 Calculus of bile duct without cholangitis or cholecystitis without obstruction (principal); K80.51 Calculus of bile duct without cholangitis or cholecystitis with obstruction; K83.8 Other specified diseases of biliary tract; Z11.59 Encounter for screening for other viral diseases; R17 Unspecified jaundice; E11.9 Type 2 diabetes mellitus without complications; I10 Essential (primary) hypertension; R79.89 Other specified abnormal findings of blood chemistry; Z79.4 Long term (current) use of insulin; Z87.891 Personal history of nicotine dependence; Z85.038 Personal history of other malignant neoplasm of large intestine; Z90.49 Acquired absence of other specified parts of digestive tract; Z89.512 Acquired absence of left leg below knee
CPT/HCPCS: 43264; 43274; 74328; 76000; 82962; 87635; C9803; J7120; J2405; U0003

== ENCOUNTER 2020-07-29 11:28 | Day surgery (SDC) | payer MEDICARE, SELFPAY ==
[2020-06-15 09:03] VITALS: BMI 31.9
--- NOTE | 2020-07-02 07:00 | HP_ITS ---
Intake Vital Signs 06/15/20 Height 5 ft 9 in 06/15/20 Weight: 216 lb 8 oz 06/15/20 BP 180/74 H 06/15/20 Blood Pressure Location Rt brachial 06/15/20 Position Sitting 06/15/20 Respiration 20 H 06/15/20 Pulse 64 06/15/20 Pulse Source NIBP 06/15/20 Temp 97.8 F 06/15/20 Temp Source Temporal 06/15/20 Pulse Oximetry (%) 96 06/15/20 Oxygen Delivery Method room air Intake Visit Reasons: 4WK F/U ERCP Chief Complaint: Discuss ERCP Professor [employer] Required: No Is patient in pain?: No Allergies clonidine Allergy (Verified 06/15/20 08:59) Other terazosin HCl [From Hytrin] Allergy (Verified 06/15/20 08:59) Other tetracycline Allergy (Verified 06/15/20 08:59) Unknown valsartan [From Diovan] Allergy (Verified 06/15/20 08:59) Unknown amlodipine besylate [From Norvasc] Adverse Reaction (Verified 06/15/20 08:59) Other dexamethasone [From Maxidex] Adverse Reaction (Verified 06/15/20 08:59) Other doxycycline Adverse Reaction (Verified 06/15/20 08:59) Upset Stomach enalapril maleate [From Vasotec] Adverse Reaction (Verified 06/15/20 08:59) Other enalaprilat dihydrate [From Vasotec] Adverse Reaction (Verified 06/15/20 08:59) Other ezetimibe [From Zetia] Adverse Reaction (Verified 06/15/20 08:59) Other hydrochlorothiazide Adverse Reaction (Verified 06/15/20 08:59) Other lansoprazole [From Prevacid] Adverse Reaction (Verified 06/15/20 08:59) Other losartan potassium [From Cozaar] Adverse Reaction (Verified 06/15/20 08:59) Other metformin Adverse Reaction (Verified 06/15/20 08:59) Other pioglitazone HCl [From Actos] Adverse Reaction (Verified 06/15/20 08:59) Other propranolol HCl [From Inderal LA] Adverse Reaction (Verified 06/15/20 08:59) Other rosuvastatin calcium [From Crestor] Adverse Reaction (Verified 06/15/20 08:59) Other sucralfate [From Carafate] Adverse Reaction (Verified 06/15/20 08:59) Other [facility] Medical History Acute cholecystitis (Acute) Debility (Acute) Ampulla of Vater mass (Acute) Hypertension (Chronic) Type II diabetes mellitus (Chronic) 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 Panda Manzano MD) Smoking Status: Former smoker alcohol intake: never substance use type: does not use HPI HPI HPI: DAO BENNETT, is a 74 M who presents to the office today for HPI HPI Surgical H&P: Yes HPI: DAO BENNETT, is a 74 M who presents to the office today for Follow-up. The patient needs repeat ERCP for stent removal. The patient had a very large stone in his common bile duct which was unable to be removed and a stent was placed. ROS General General: Yes fatigue and colon cancer; no weight change, appetite, breast cancer or weakness HEENT HEENT: No difficulty swallowing, eye injury, eye surgery, swollen glands or hoarseness Endo Endocrine: Yes diabetes mellitus; no thyroid disease, thyroid cancer, Hair loss, heat intolerance or cold intolerance Skin Skin: No rash or changing moles Breast Breast: No left breast lump, right breast lump, nipple discharge, breast pain, abnormal mammogram, abnormal US or breast enlargement Musc Musculoskeletal: Yes back problems and arthritis; no rheumatoid arthritis, gout or joint pain Cardio Cardiovascular: Yes high blood pressure; no murmur, pacemaker, heart disease, atrial fibrillation, heart attack, heart stent, palpitations, shortness of breat with exertion or chest pain Psych Psychiatric: No depression, anxiety or hearing voices Resp Respiratory: No shortness of breath, No sleep apnea, Yes cough, No COPD, No asthma, No emphysema, No wheezing Gastro Gastrointestinal: No abdominal pain, No nausea or vomiting, Yes diarrhea, No constipation, No blood in stool, No acid reflux, Yes hemorrhoids, No ulcers, No gallbladder problem, No black,tarry stools Kel Hematologic: No blood thinners, No blood disorders, No bleeding, No anemia, No blood clots Neuro Neurologic: No system reviewed and no additional complaints, except as docu, No as per HPI, No abnormal walking, No abnormal hearing, No abnormal movements, No abnormal speech, No behavioral changes, No burning sensations, No confusion, No seizure-like activity, No unsteadiness, No dizziness, No localized weakness, No frequent falls, No headache(s), No lack of coordination, No loss of vision, No memory loss, No numbness, No other visual disturbances, No radiating pain, No restless legs, No sensory deficit, No fainting, No tingling, No tremor(s), No weakness, No other Exam Const General: cooperative Orientation: alert, oriented x3 Chest Breast Palpation: No nipple discharge Resp Effort & Inspection: normal respiratory effort Auscultation: clear to auscultation bilaterally Cardio Rate: regular rate Rhythm: regular rhythm Heart Sounds: no murmurs GI Inspection: non-distended Palpation: soft, nontender Assessment & Plan Problems 1. Choledocholithiasis K80.50 Plan Patient had a very large gallstone in his gallbladder which was unable to be removed during the last ERCP and a stent was placed. The patient requires ERCP for stent removal and attempted removal of the choledocholithiasis. I informed him that if I was unable to remove the choledocholithiasis I would replace the stent and send him to a biliary surgeon for surgical removal. I explained endoscopy in detail to the patient. I explained the risks including but not limited to stroke or heart attack with anesthesia, perforation of the GI tract, bleeding, infection. I also explained that with ERCP, the risk of perforation of the bile duct or bowel or pancreatitis. I explained that any of these could necessitate further emergency surgery. The patient understands and all questions were answered sufficiently. The patient wishes to proceed with procedure. Panda Manzano MD Pager: [facility] [address] [place] [address], [address] [place] [address] Office: Orders Orders: ERCP Biliary Only Today K80.50 Coding Level of Care Code Off vis,est,level 3 Diagnoses Choledocholithiasis K80.50 I have re-examined the patient. There are no clinical changes since date of exam.
[2020-07-29 11:45] VITALS: BP 157/64; PULSE 76; RESP 16; TEMP 37; O2SAT 97; BMI 31.4
[2020-07-29] MEDS: Lactated Ringers 1,000 ML 100 ML IV ×2 (11:57→12:45)
--- NOTE | 2020-07-29 12:39 | OP.ERCP_ITS ---
Patient Name: Suhas Sterling Procedure Date: 07/29/2020 12:00 PM Date of : 1945 Age: 74 Procedure: ERCP Indications: Common bile duct stone(s) Providers: Panda Manzano MD Referring MD: Simon Munson Medicines: General Anesthesia Patient Profile: This is a 74 year old male. Refer to note in patient chart for documentation of history and physical. Complications: No immediate complications. Procedure: Pre-Anesthesia Assessment: - Prior to the procedure, a History and Physical was performed, and patient medications and allergies were reviewed. The patient's tolerance of previous anesthesia was also reviewed. The risks and benefits of the procedure and the sedation options and risks were discussed with the patient. All questions were answered, and informed consent was obtained. Prior Anticoagulants: The patient has taken no previous anticoagulant or antiplatelet agents. After reviewing the risks and benefits, the patient was deemed in satisfactory condition to undergo the procedure. After obtaining informed consent, the scope was passed under direct vision. Throughout the procedure, the patient's blood pressure, pulse, and oxygen saturations were monitored continuously. The [id number] endoscope was introduced through the mouth, and advanced to the duodenum and used to inject contrast into the bile duct. The ERCP was accomplished without difficulty. The patient tolerated the procedure well. Scope In: 12:20:00 PM Scope Out: 12:30:21 PM Total Procedure Duration Time 0 hours 10 minutes 21 seconds Findings: One stent was removed from the biliary tree using a snare. A 0.035 inch x 260 cm straight Dreamwire was passed into the biliary tree. The sphincterotome was passed over the guidewire and the bile duct was then deeply cannulated. Contrast was injected. The biliary tree was swept with a 12 mm balloon starting at the bifurcation. Stone remnants and sludge was swept from the duct. All stones were removed. Impression: - Choledocholithiasis was found. Complete removal was accomplished by balloon extraction. - One stent was removed from the biliary tree. - The biliary tree was swept. Recommendation: - Discharge patient to home. - Resume previous diet. - Continue present medications. Procedure Code(s): --- Professional --- 98307, Endoscopic retrograde cholangiopancreatography (ERCP); with removal of foreign body(s) or stent(s) from biliary/pancreatic duct(s) 16761, 51, Endoscopic retrograde cholangiopancreatography (ERCP); with removal of calculi/debris from biliary/pancreatic duct(s) Diagnosis Code(s): --- Professional --- K80.50, Calculus of bile duct without cholangitis or cholecystitis without obstruction Z46.59, Encounter for fitting and adjustment of other gastrointestinal appliance and device CPT copyright 2017 [employer]. All rights reserved. The codes documented in this report are preliminary and upon certified coder review may be revised to meet current compliance requirements. Panda Manzano MD 07/29/2020 12:39:07 PM This report has been signed electronically. Number of Addenda: 0 Note Initiated On: 07/29/2020 12:00 PM
--- NOTE | 2020-07-29 12:39 | OP.CCLET_ITS ---
07/29/2020 Simon Munson Re : ERCP procedure for Suhas Frazier Jeimy This procedure was performed on Wednesday, July 29, 2020. My impressions and recommendations are as follows: Impressions : - Choledocholithiasis was found. Complete removal was accomplished by balloon extraction. - One stent was removed from the biliary tree. - The biliary tree was swept. Recommendations : - Discharge patient to home. - Resume previous diet. - Continue present medications. My findings are described in the full procedure note, which is enclosed. If I can be of further assistance, please feel free to contact me at Doctor phone number(s): , Work: . Sincerely, Panda Manzano MD 07/29/2020 12:39:07 PM This report has been signed electronically.
[2020-07-29 12:45] VITALS: BP 125/68; BP 157/64; PULSE 75; RESP 18; TEMP 36.3; O2SAT 96
[2020-07-29 13:00] VITALS: BP 135/81; BP 157/64; PULSE 65; RESP 18; O2SAT 95
--- NOTE | 2020-07-29 13:00 | RAD_ITS ---
ERCP INDICATION: Abdominal pain TECHNIQUE: Fluoroscopy of the abdomen was utilized during an ERCP and a single image is made of for interpretation. IMPRESSION: Fluoroscopy during ERCP. Electronically Signed: Asher Hoskins MD at 13:56 EST Tel , Service support , RAD/ERCP Biliary Only
[2020-07-29 13:11] LABS: Bedside Glucose 89 mg/dL (70-110)
[2020-07-29 13:14] VITALS: BP 144/74; BP 157/64; PULSE 64; RESP 18; TEMP 36.1; O2SAT 94
[2020-07-29 13:51] VITALS: BP 157/64
== END 2020-07-29 13:52 | disposition home or self-care (01) ==
LOC: EN 11:29 → AC 11:29
PROVIDERS: PCP Family Medicine; Referring Provider Family Medicine; Visit Provider Surgery
PROC: (CPT 43260; principal; 2020-07-29 12:30)
DX: K80.50 Calculus of bile duct without cholangitis or cholecystitis without obstruction (principal); Z20.828 Contact with and (suspected) exposure to other viral communicable diseases; E11.9 Type 2 diabetes mellitus without complications; I10 Essential (primary) hypertension; E78.00 Pure hypercholesterolemia, unspecified; F41.9 Anxiety disorder, unspecified; Z79.4 Long term (current) use of insulin; Z79.899 Other long term (current) drug therapy; Z87.891 Personal history of nicotine dependence; Z89.512 Acquired absence of left leg below knee
CPT/HCPCS: 43264; 43275; 74328; 76000; 82962; 87426; C9803; J7120; J2405

== ENCOUNTER → 2021-01-01 11:43 | Outpatient (CLI) | payer MEDICARE, SELFPAY ==
--- NOTE | 2021-01-01 11:50 | RAD_ITS ---
HISTORY: BACK PAIN. TECHNIQUE: XR Spine Lumbar 2 or 3 Views. # of images incl. paperwork: 2. COMPARISON: 11/23/2018. FINDINGS: VERTEBRAE: 5 lumbar vertebral bodies. Vertebral body heights maintained. No acute fracture identified. Degenerative changes of the posterior elements. ALIGNMENT: No significant anterior or posterior subluxation. INTERVERTEBRAL DISCS: Degenerative endplate changes with mild intervertebral disc space narrowing. SOFT TISSUES: Suture in the right abdomen. RAD/Lumbar Spine 2 or 3 Views IMPRESSION: No acute fracture or dislocation identified in the lumbar spine. Degenerative changes. at 1030 Reported and signed by: Adriana Oshea MD Electronically Signed: Adriana Oshea MD at 10:29 EDT Tel , Service support ,
== END ==
PROVIDERS: PCP Family Medicine; Referring Provider Anesthesiology Pain Medicine; Visit Provider Anesthesiology Pain Medicine
DX: M54.9 Dorsalgia, unspecified (principal)
CPT/HCPCS: 72100